=== PATIENT | female | born 1985 | race African-American/Black ===

== ENCOUNTER 2019-10-29 21:22 | Emergency (ER) | payer BC, OTHER ==
[~2019-10-29] VITALS: Ht 172.7 cm; Wt 88.2 kg
[~2019-10-29 21:22] MED LIST: NAPR-683 PO; OXYC1TAB15 PO
[2019-10-29 21:50] VITALS: BP 133/98
[2019-10-29] MEDS ORDERED: AMOX500T PO (22:57)
--- NOTE | 2019-10-29 23:01 | PHYS DOC ---
Past Medical History Past Medical History: No Pertinent History Past Surgical History: No Surgical History Smoking Status: Never Smoker Alcohol Use: Rarely Drug Use: None General Adult EDM: Chief Complaint: SORE THROAT HPI: HPI: Patient is a 34 year old AA female who presents the emergency department with complaints of a sore throat that is worse on the left side since yesterday. She denies any fever, rash, cough, shortness of breath, ear pain, dental pain, or abdominal pain. She denies any difficulty speaking or swallowing. She currently rates the pain a 2 out of 10 on the pain scale, it is worse with swallowing, she denies any alleviating factors. Review of Systems: Review of Systems: Complete review of systems is negative unless otherwise documented in the HPI Heart Score: Risk Factors: Risk Factors: DM, Current or recent (<one month) smoker, HTN, HLP, family h istory of CAD, obesity. Risk Scores: Score 0 - 3: 2.5% MACE over next 6 weeks - Discharge Home Score 4 - 6: 20.3% MACE over next 6 weeks - Admit for Clinical Observation Score 7 - 10: 72.7% MACE over next 6 weeks - Early Invasive Strategies Allergies: Allergies: Allergies Coded Allergies Type Severity Reaction Last Updated Verified No Known Drug Allergies 08/16/15 No Physical Exam: PE: Constitutional: Well developed, well nourished, no acute distress HENT: Normocephalic, atraumatic, bilateral external ears normal, bilateral TMs normal, posterior pharynx erythemic with 2+ tonsils with exudate bilaterally, nose normal. [] Eyes: PERRLA, EOMI, conjunctiva normal, no discharge. [] Neck: Normal range of motion, bilateral anterior cervical chain lymphadenopathy, supple, no stridor. [] Cardiovascular:Heart rate regular rhythm, no murmur [] Lungs & Thorax: Bilateral breath sounds clear to auscultation, Respirations even and unlabored, no retractions, no respiratory distress [] Skin: Warm, dry, no erythema, no rash. [] Back: No tenderness Extremities: No cyanosis, ROM intact Neurologic: Alert and oriented X 3, no focal deficits noted. [] Psychologic: Affect normal, judgement normal, mood normal. [] Current Patient Data: Vital Signs: Vital Signs Date Time Temp Pulse Resp B/P (MAP) Pulse Ox O2 Delivery O2 Flow Rate FiO2 7/9/20 21:50 99.4 92 12 133/98 (110) 100 Room Air 99.4 EKG: EKG: [] Radiology/Procedures: Radiology/Procedures: Rapid strep test positive [] Course & Med Decision Making: Course & Med Decision Making Pertinent Labs and Imaging studies reviewed. (See chart for details) [] Dragon Disclaimer: Dragon Disclaimer: This electronic medical record was generated, in whole or in part, using a voice recognition dictation system. Departure Departure Impression: Primary Impression: Strep pharyngitis Disposition: HOME, SELF-CARE Condition: STABLE Referrals: NO PCP (PCP) Patient Instructions: Strep Throat, [id number] Additional Instructions: Fill prescription and use as directed. Recommend warm salt water gargles as n eeded for relief of discomfort. Alternate Tylenol and ibuprofen as needed for fever/pain. Discard your toothbrush tomorrow and begin using a new toothbrush. Follow-up with primary care doctor if symptoms persist. Return to the ER if symptoms worsen. Scripts Amoxicillin (AMOXICILLIN) 500 Mg Tablet 1 TAB PO BID, #20 TAB 0 Refills Prov: AYANNA DAWKINS APRN 10/29/19 Justicifation of Admission Dx: Justifications for Admission: Justification of Admission Dx: N/A AYANNA DAWKINS APRN Oct 29, 2019 23:01
== END 2019-10-29 23:10 | disposition home or self-care (01) ==
LOC: ER 21:22
DX: J02.0 Streptococcal pharyngitis (principal); B95.0 Streptococcus, group A, as the cause of diseases classified elsewhere
CPT/HCPCS: 87880; 99283

== ENCOUNTER 2019-11-18 10:42 | Emergency (ER) | payer BC ==
[~2019-11-18] VITALS: Ht 172.7 cm; Wt 88.0 kg
[~2019-11-18 10:42] MED LIST changes: +AMOX500T PO
[2019-11-18] MEDS ORDERED: IV NORMAL SALINE 1000ML BAG 1,000 ML IV ONE (12:00)
[2019-11-18 12:10] LABS: BASO % 1 % (0-3); EOS % 1 % (0-3); HEMATOCRIT 37.7 % (36.0-47.0); HEMOGLOBIN 12.5 g/dL (12.0-15.5); LYMPH # 1.7 x10^3/uL (1.0-4.8); LYMPH % 26 % (24-48); MEAN CORPUSCULAR HEMOGLOBIN 27 pg (25-35); MEAN CORPUSCULAR HGB CONC 33 g/dL (31-37); MEAN CORPUSCULAR VOLUME 81 fL (79-100); MONO # 0.6 x10^3/uL (0.0-1.1); MONO % 9 % (0-9); NEUT % 63 % (31-73); PLATELET COUNT 269 x10^3/uL (140-400); RED BLOOD COUNT 4.64 x10^6/uL (3.50-5.40); RED CELL DISTRIBUTION WIDTH 14.4 % (11.5-14.5); WHITE BLOOD COUNT 6.3 x10^3/uL (4.0-11.0)
[2019-11-18 12:12] LABS: CALCIUM 8.7 mg/dL (8.5-10.1); CREATININE 0.9 mg/dL (0.6-1.0); GFR 87.8; POTASSIUM 3.4 mmol/L (3.5-5.1)
--- NOTE | 2019-11-18 12:12 | PHYS DOC ---
Past Medical History Past Medical History: No Pertinent History Past Surgical History: No Surgical History Smoking Status: Never Smoker Alcohol Use: Rarely Drug Use: None General Adult EDM: Chief Complaint: SYNCOPE HPI: HPI: Patient is a 34 year old female who presents following a syncopal event. Patient has experienced a couple episodes of transient pleuritic chest pain and shortness of breath over since yesterday and was in the car today and had a syncopal event. No trauma was noted. Patient states her pain in her chest is intermittent and currently gone it worse with deep breaths. Patient also had some shortness of breath that is currently resolved. Patient had strep throat 2 weeks ago but denies any recent fevers. No vomiting or diarrhea. The episode lasted less than a minute and patient is back to her baseline Review of Systems: Review of Systems: Constitutional: Denies fever or chills. [] Eyes: Denies change in visual acuity. [] HENT: Denies nasal congestion or sore throat. [] Respiratory: Denies cough but had some transient shortness of breath Cardiovascular: Patient had transient chest pain but no edema. [] GI: Denies abdominal pain, vomiting, bloody stools or diarrhea. [] But had some nausea : Denies dysuria. [] Musculoskeletal: Denies back pain or joint pain. [] Integument: Denies rash. [] Neurologic: Denies headache, focal weakness or sensory changes. [] Endocrine: Denies polyuria or polydipsia. [] Lymphatic: Denies swollen glands. [] Psychiatric: Denies depression or anxiety. [] Heart Score: HEART Score for Chest Pain: HEART Score for Chest Pain Response (Comments) Value History Slighlty/Non-Suspicious 0 ECG Normal 0 Age < 45 0 Risk Factors 1 or 2 Risk Factors 1 Troponin < Normal Limit 0 Total 1 Risk Factors: Risk Factors: DM, Current or recent (<one month) smoker, HTN, HLP, family history of CAD, obesity. Risk Scores: Score 0 - 3: 2.5% MACE over next 6 weeks - Discharge Home Score 4 - 6: 20.3% MACE over next 6 weeks - Admit for Clinical Observation Score 7 - 10: 72.7% MACE over next 6 weeks - Early Invasive Strategies Current Medications: Current Medications Medications (Trade) Dose Ordered Sig/Sanna Start Time Stop Time Status Last Admin Dose Admin Sodium Chloride 1,000 ml @ 1,000 mls/hr 1X ONCE 11/18/19 12:00 11/18/19 12:59 11/18/19 11:57 1,000 MLS/HR Allergies: Allergies: Allergies Coded Allergies Type Severity Reaction Last Updated Verified No Known Drug Allergies 08/16/15 No Physical Exam: PE: Constitutional: Well developed, well nourished, no acute distress, non-toxic appearance. [] HENT: Normocephalic, atraumatic, bilateral external ears normal, , nose normal. [] Eyes: PERRLA, EOMI, conjunctiva normal, no discharge. [] Neck: Normal range of motion, no tenderness, supple, no stridor. [] Cardiovascular:Heart rate regular rhythm, Lungs & Thorax: No respiratory distress Abdomen: l, soft, no tenderness, no masses, no pulsatile masses. [] Skin: Warm, dry, no erythema, no rash. [] Back: No tenderness, no CVA tenderness. [] Extremities: No tenderness, no cyanosis, no clubbing, ROM intact, no edema. [] Neurologic: Alert and oriented X 3, normal motor function, normal sensory function, no focal deficits noted. [] Psychologic: Affect normal, judgement normal, mood normal. [] Current Patient Data: Labs: Laboratory Tests Test 11/18/19 11:26 11/18/19 11:31 11/18/19 13:20 White Blood Count 6.3 x10^3/uL Red Blood Count 4.64 x10^6/uL Hemoglobin 12.5 g/dL Hematocrit 37.7 % Mean Corpuscular Volume 81 fL Mean Corpuscular Hemoglobin 27 pg Mean Corpuscular Hemoglobin Concent 33 g/dL Red Cell Distribution Width 14.4 % Platelet Count 269 x10^3/uL Neutrophils (%) (Auto) 63 % Lymphocytes (%) (Auto) 26 % Monocytes (%) (Auto) 9 % Eosinophils (%) (Auto) 1 % Basophils (%) (Auto) 1 % Neutrophils # (Auto) 4.0 x10^3/uL Lymphocytes # (Auto) 1.7 x10^3/uL Monocytes # (Auto) 0.6 x10^3/uL Eosinophils # (Auto) 0.0 x10^3/uL Basophils # (Auto) 0.0 x10^3/uL D-Dimer (Mercedes) 0.60 ug/mlFEU Sodium Level 140 mmol/L Potassium Level 3.4 mmol/L Chloride Level 104 mmol/L Carbon Dioxide Level 28 mmol/L Anion Gap 8 Blood Urea Nitrogen 7 mg/dL Creatinine 0.9 mg/dL Estimated GFR (Cockcroft-Gault) 87.8 BUN/Creatinine Ratio 8 Glucose Level 87 mg/dL Calcium Level 8.7 mg/dL Total Bilirubin 0.3 mg/dL Aspartate Amino Transf (AST/SGOT) 15 U/L Alanine Aminotransferase (ALT/SGPT) 19 U/L Alkaline Phosphatase 69 U/L Troponin I Quantitative < 0.017 ng/mL Total Protein 7.5 g/dL Albumin 3.5 g/dL Albumin/Globulin Ratio 0.9 Serum Test, Qualitative Negative Glucose (Fingerstick) 83 mg/dL Urine Collection Type Unknown Urine Color Yellow Urine Clarity Clear Urine pH 7.5 Urine Specific Deshler 1.015 Urine Protein Negative mg/dL Urine Glucose (UA) Negative mg/dL Urine Ketones (Stick) Negative mg/dL Urine Blood Large Urine Nitrite Negative Urine Bilirubin Negative Urine Urobilinogen Dipstick 0.2 mg/dL Urine Leukocyte Esterase Small Urine RBC 6-10 /HPF Urine WBC 5-10 /HPF Urine Squamous Epithelial Cells Few /LPF Urine Bacteria 0 /HPF Urine Mucus Slight /LPF Current Medications Medications (Trade) Dose Ordered Sig/Sanna Route PRN Reason Start Time Stop Time Status Last Admin Dose Admin Sodium Chloride 1,000 ml @ 1,000 mls/hr 1X ONCE IV 11/18/19 12:00 11/18/19 12:59 DC 11/18/19 11:57 Iohexol (Omnipaque 350 Mg/ml) 100 ml 1X ONCE IV 11/18/19 14:30 11/18/19 14:31 DC 11/18/19 14:58 Info (CONTRAST GIVEN -- Rx MONITORING) 1 each PRN DAILY PRN MC SEE COMMENTS 11/18/19 14:30 11/20/19 14:29 Laboratory Tests Test 11/18/19 11:31 Glucose (Fingerstick) 83 mg/dL (70-99) Vital Signs: Vital Signs Date Time Temp Pulse Resp B/P (MAP) Pulse Ox O2 Delivery O2 Flow Rate FiO2 11/18/19 10:49 98.1 87 16 153/94 (113) 100 Room Air 98.1 Vital Signs Date Time Temp Pulse Resp B/P (MAP) Pulse Ox O2 Delivery O2 Flow Rate FiO2 11/18/19 10:49 98.1 87 16 153/94 (113) 100 Room Air 98.1 EKG: EKG: [] EKG interpreted by me normal sinus rhythm with a rate of 79 normal axis normal intervals normal ST segments Radiology/Procedures: Radiology/Procedures: [][facility] [address] [place] [address] IMAGING REPORT Signed PATIENT: WANDY SHAH ACCOUNT: [id number] : 1985 LOCATION: ER AGE: 34 SEX: F EXAM STATUS: REG ER ORD. PHYSICIAN: MUMTAZ LIM MD REASON: CHEST PAIN, SYNCOPE, r/o pe PROCEDURE: CT ANGIOGRAPHY CHEST CT ANGIOGRAPHY CHEST History: Chest pain. Syncope. Technique: CT of the chest was performed with intravenous contrast. PE protocol. Maximum intensity projection coronal and sagittal reconstructions were performed. Exposure: One or more of the following individualized dose reduction techniques were utilized for this examination: 1. Automated exposure control 2. Adjustment of the mA and/or kV according to patient size 3. Use of iterative reconstruction technique. Comparison: None Findings: Chest: No pulmonary embolism. No aortic aneurysm or dissection. No pathologic lymphadenopathy. No consolidation or pleural effusion. Small right lower lobe pulmonary nodule measures 3 mm (series 3 image 68). Right middle lobe anterior pleural-based nodule measures 3 mm (image 64). Upper abdomen: The imaged upper abdomen is unremarkable. Bones: No pathologic osseous lesions. Impression: 1. No acute thoracic pathology. No pulmonary embolism. 2. Small pulmonary nodules. Recommend one-year follow-up if high risk. Electronically signed by: Stan Noland DO (11/18/2019 3:17 PM) [facility] DICTATED and SIGNED BY: STAN NOLAND DO DATE: 11/18/19 1517 Course & Med Decision Making: Course & Med Decision Making Pertinent Labs and Imaging studies reviewed. (See chart for details) [] Reassessment at 15: 23 patient resting in no acute distress. Work-up is negative. Discussed with patient the pulmonary nodules and need for repeat scan in a year. Patient underwent a CT angiogram because her d-dimer was positive and she was having chest pain and had a syncopal event. Dragon Disclaimer: Dragon Disclaimer: This electronic medical record was generated, in whole or in part, using a voice recognition dictation system. Departure Departure Impression: Primary Impression: Syncope Disposition: 01 HOME, SELF-CARE Condition: STABLE Referrals: NO PCP (PCP) MAKI GREER MD 2-3 DAYS PCP 2-3 DAYS Patient Instructions: Syncope Additional Instructions: EMERGENCY DEPARTMENT GENERAL DISCHARGE INSTRUCTIONS THANK YOU for coming to [facility] Emergency Department (ED) today and trusting us with your care. We trust that you had a positive experience in our Emergency Department. If you wish to speak to the department Management you can contact the humanities department chair at . YOUR FOLLOW UP INSTRUCTIONS ARE FOLLOWS: Do you have a private doctor? If you do not have a private doctor, please ask for a resource list of physicians or clinics that may be able to assist you with follow up care. The Emergency Physician has interpreted your x-rays. The X-ray specialist will also review them. If there is a change in the findings you will be notified in 48 hours when at all possible. A lab test or lab culture may have been done, your results will be reviewed and you will be notified if you need a change in treatment. ADDITIONAL INSTRUCTIONS AND INFORMATION Your care today has been supervised by a physician who is specially trained in emergency care. Many problems require more than one evaluation for a complete diagnosis and treatment. We recommend that you schedule your follow up appointment as recommended to ensure complete treatment of your illness or injury. If you are unable to obtain follow up care and continue to have a problem, or if your condition worsens we recommend that you return to the ED. We are not able to safely determine your condition over the phone nor are we able to give sound medical advice over the phone. For these safety reasons, if you call for medical advice we will ask you to come to the ED for further evaluation If you have any questions regarding these discharge instructions please call the ED at . SAFETY INFORMATION In the interest of safety, wellness, and injury prevention; we encourage you to wear your seatbelt, if you smoke; quit smoking, and we encourage your family to use protective helmet for bicycling and other sporting events that present an increased risk for head injury. IF YOUR SYMPTOMS WORSEN OR NEW SYMPTOMS DEVELOP, OR YOU HAVE CONCERNS ABOUT YOUR CONDITION; OR IF YOUR CONDITION WORSENS WHILE YOU ARE WAITING FOR YOUR FOLLOW UP APPOINTMENT; EITHER CONTACT YOUR PRIMARY CARE DOCTOR, THE PHYSICIAN WHOSE NAME AND NUMBER YOU WERE GIVEN, OR RETURN TO THE ED IMMEDIATELY. Scripts Ondansetron Hcl (ZOFRAN) 4 Mg Tablet 1 TAB PO PRN Q6-8HRS for NAUSEA, #12 TAB Prov: MUMTAZ LIM MD 11/18/19 Justicifation of Admission Dx: Justifications for Admission: Justification of Admission Dx: N/A MUMTAZ LIM MD Nov 18, 2019 12:12
[2019-11-18 12:18] LABS: ALBUMIN 3.5 g/dL (3.4-5.0); ALBUMIN/GLOBULIN RATIO 0.9 (1.0-1.7); TOTAL BILIRUBIN 0.3 mg/dL (0.2-1.0); TOTAL PROTEIN 7.5 g/dL (6.4-8.2)
[2019-11-18 12:23] LABS: PREG TEST PT QUAL NEGATIVE (NEG)
--- NOTE | 2019-11-18 12:43 | RAD ---
Single AP view of the chest. Comparison: None. Indication: Chest pain Findings: The heart is not enlarged. There is no pneumothorax or effusion. No air space or interstitial disease. Impression: 1. No acute cardiopulmonary process. Electronically signed by: Ashu Dennis MD (11/18/2019 12:41 PM) [id number]
[2019-11-18 13:30] LABS: BILIRUBIN,URINE NEGATIVE (NEG); CLARITY,URINE CLEAR; COLOR,URINE YELLOW; NITRITE,URINE NEGATIVE (NEG); PH,URINE 7.5 (<5.0-8.0); PROTEIN,URINE NEGATIVE (NEG-TRACE); UROBILINOGEN,URINE 0.2 mg/dL (0.2 mg/dL)
[2019-11-18 13:56] LABS: SQUAMOUS EPITHELIAL CELL,UR FEW /LPF
[2019-11-18 13:57] LABS: BACTERIA,URINE 0 /HPF (0-FEW)
[2019-11-18] MEDS ORDERED: IOHEXOL 350 MG/ML 100 ML VIAL. IV ONE (14:30)
[2019-11-18] MEDS ORDERED: CONTRAST GIVEN. MC PRN (14:30)
--- NOTE | 2019-11-18 15:20 | RAD ---
CT ANGIOGRAPHY CHEST History: Chest pain. Syncope. Technique: CT of the chest was performed with intravenous contrast. PE protocol. Maximum intensity projection coronal and sagittal reconstructions were performed. Exposure: One or more of the following individualized dose reduction techniques were utilized for this examination: 1. Automated exposure control 2. Adjustment of the mA and/or kV according to patient size 3. Use of iterative reconstruction technique. Comparison: None Findings: Chest: No pulmonary embolism. No aortic aneurysm or dissection. No pathologic lymphadenopathy. No consolidation or pleural effusion. Small right lower lobe pulmonary nodule measures 3 mm (series 3 image 68). Right middle lobe anterior pleural-based nodule measures 3 mm (image 64). Upper abdomen: The imaged upper abdomen is unremarkable. Bones: No pathologic osseous lesions. Impression: 1. No acute thoracic pathology. No pulmonary embolism. 2. Small pulmonary nodules. Recommend one-year follow-up if high risk. Electronically signed by: Stan Noland DO (11/18/2019 3:17 PM) [facility]
[2019-11-18 15:30] VITALS: BP 132/88
[2019-11-18] MEDS ORDERED: ONDA4TAB7 PO (15:30)
--- NOTE | 2019-11-18 17:53 | EKG ---
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
== END 2019-11-18 16:40 | disposition home or self-care (01) ==
LOC: ER 10:42
DX: R55 Syncope and collapse (principal); R07.89 Other chest pain; R06.02 Shortness of breath
CPT/HCPCS: 36415; 71045; 71275; 80053; 81001; 82962; 84484; 84703; 85025; 85379; 87086; 93005; 96360; 99285; J7030; Q9967

== ENCOUNTER → 2019-12-03 | Outpatient (CLI) | payer BC ==
[2019-11-18 15:30] VITALS: BP 132/88
[~2019-12-03] MED LIST changes: +ONDA4TAB7 PO
--- NOTE | 2019-12-03 09:45 | RAD ---
CT HEAD WO CONTRAST Date: 12/03/2019 9:30 AM Clinical Indication: Reason: headaches / Spl. Instructions: fell 3 weeks ago LOC headaches x 3weeks / History: Comparison: None. Technique: 5 mm axial tomographic images were obtained of the head without contrast. These were viewed on brain and bone windows. One or more of the following dose reduction techniques were utilized: Automated exposure control (AEC), Adjustment of mA and/or kV according to patient size, Use of iterative reconstruction technique such as ASiR, CT scan done according to ALARA and image gently/image wisely Findings: The brain parenchyma is normal in attenuation. No intra- or extra-axial mass or fluid collection. No acute hemorrhage. The ventricles are normal in size, shape, and morphology. The ramsay-white matter junction is normal. The subarachnoid cisterns are patent. The visualized paranasal sinuses are normal. The visualized portions of the orbits and globes are normal. The mastoid air cells are clear. The didactic instructor topogram shows no lytic lesion or fracture. Impression: No acute intracranial process. Electronically signed by: Buster Fong MD (12/03/2019 9:42 AM) [id number]
== END | disposition home or self-care (01) ==
LOC: CT 09:07
PROVIDERS: ATTEND Internal Medicine
DX: R51 Headache (principal)
CPT/HCPCS: 70450

== ENCOUNTER → 2019-12-24 | Outpatient (CLI) | payer BC ==
--- NOTE | 2019-12-24 15:34 | CARD ---
MR#: [id number] Date of Study: 12/24/2019 Ordering Physician: MAKI BOO, Referring Physician: MAKI BOO, Tech: Bryanna Buchanan APPROVED REPORT EXAM: Two-dimensional and M-mode echocardiogram with Doppler and color Doppler. Other Information Quality : AverageHR: 62bpm INDICATION Murmur 2D DIMENSIONS RVDd2.9 (2.9-3.5cm)Left Atrium(2D)3.0 (1.6-4.0cm) IVSd0.8 (0.7-1.1cm)Aortic Root(2D)2.8 (2.0-3.7cm) LVDd4.6 (3.9-5.9cm)LVOT Diameter2.1 (1.8-2.4cm) PWd0.9 (0.7-1.1cm)LVDs3.1 (2.5-4.0cm) FS (%) 21.5 %SV30.3 ml Aortic Valve AoV Peak Dimitris.110.1cm/sAoV VTI20.1cm AO Peak GR.4.9mmHgLVOT Peak Dimitris.105.1cm/s LVOT VTI 21.43cmAO Mean GR.2mmHg GRAEME (VMAX)2.28za3ABQ (VTI)3.56cm2 Mitral Valve MV E Qfrfkzjk20.8cm/sMV DECEL [id number] MV A Xnvyzzlt11.7cm/sMV E Mean Gr.1mmHg MV UCU12hwR/A Ratio1.4 MVA (PHT)4.44cm2 TDI E/Lateral E'4.8E/Medial E'6.2 Pulmonary Valve PV Peak Fkzunexf53.3cm/sPV Peak Grad.3mmHg Tricuspid Valve TR P. Nodisdxk750nu/sRAP [id number] TR Peak Gr.42saCjFAUA38ttEb Pulmonary Vein S1 Ztzofbbt58.0cm/sD2 Drraiysw43.9cm/s PVa [id number] LEFT VENTRICLE The left ventricle is normal size. There is normal left ventricular wall thickness. The left ventricu lar systolic function is normal and the ejection fraction is within normal range. The Ejection Fracti on is 50-55%. There is normal LV segmental wall motion. The left ventricular diastolic function and f illing is normal for age. RIGHT VENTRICLE The right ventricle is normal size. There is normal right ventricular wall thickness. The right ventr icular systolic function is normal. ATRIA The left atrium size is normal. The right atrium size is normal. The interatrial septum is intact wit h no evidence for an atrial septal defect or patent foramen ovale as noted on 2-D or Doppler imaging. AORTIC VALVE The aortic valve is normal in structure and function. Doppler and Color Flow revealed no significant aortic regurgitation. Calculated aortic valve area is 3.14 cm2 with maximum pressure gradient of 6 mm Hg and mean pressure gradient of 3 mmHg. There is no significant aortic valvular stenosis. MITRAL VALVE The mitral valve is normal in structure and function. There is no evidence of mitral valve prolapse. There is no mitral valve stenosis. Doppler and Color-flow revealed trace mitral regurgitation. TRICUSPID VALVE The tricuspid valve is normal in structure and function. Doppler and Color Flow revealed trace tricus pid regurgitation with an estimated PAP of 26 mmHg. There is no tricuspid valve stenosis. PULMONIC VALVE The pulmonic valve is not well visualized. Doppler and Color Flow revealed trace pulmonic valvular re gurgitation. GREAT VESSELS The aortic root is normal in size. The IVC is normal in size and collapses >50% with inspiration. PERICARDIAL EFFUSION There is no evidence of significant pericardial effusion. Critical Notification Critical Value: No <Conclusion> The left ventricle is normal size. The left ventricular systolic function is normal and the ejection fraction is within normal range. The Ejection Fraction is 50-55%. Doppler and Color Flow revealed no significant aortic regurgitation. There is no significant aortic valvular stenosis. Doppler and Color-flow revealed trace mitral regurgitation. Doppler and Color Flow revealed trace tricuspid regurgitation with an estimated PAP of 26 mmHg. Signed by : Maki Boo MD Electronically Approved : 12/24/2019 15:33:43
== END | disposition home or self-care (01) ==
LOC: ECHO 09:05
PROVIDERS: ATTEND Internal Medicine Cardiovascular Disease
DX: R01.1 Cardiac murmur, unspecified (principal)
CPT/HCPCS: 93306

== ENCOUNTER → 2020-01-04 | Outpatient (CLI) | payer BC ==
--- NOTE | 2020-01-06 16:12 | SLEEP ---
DATE OF STUDY: 01/05/2020 OBJECTIVE: The patient is a 34-year-old female with excessive somnolence. [place] sleep score 7, height 67 inches, weight 190 pounds, body mass index 29.8. Respiratory monitoring shows a total of 146 events for an apnea-hypopnea index of 16 events per hour of sleep. Most of these events were mixed apnea. The minimum oxygen saturation is 81%. No significant cardiac arrhythmias are observed. IMPRESSION: Home sleep study positive for sleep apnea. RECOMMENDATIONS: The patient should return to the lab for a CPAP titration study. Alternatively, the patient could be started on auto titrating CPAP. She should also avoid sedatives and alcohol and pursue weight loss. Thank you for letting us help with the patient's care. ARACELY WEAVER MD DR: RAJENDRA/jamil JOB#: [id number] / [id number] RYAN Campos
== END | disposition home or self-care (01) ==
LOC: RT 09:49
PROVIDERS: ATTEND Nurse Practitioner Family
DX: G47.19 Other hypersomnia (principal)
CPT/HCPCS: G0399